=== PATIENT | female | born 1995 | race Caucasian/White ===

== ENCOUNTER 2019-05-21 13:18 | Emergency (ER) | payer OTHER ==
[2019-05-21 13:40] VITALS: BP 128/67
--- NOTE | 2019-05-21 14:02 | UC ---
Abdominal Pain Female HPI - HPI Summary HPI Summary: Patient is a 24 year old transgender, who present today to the urgent care with lower abdominal pain for past 1 week. Reports the pain is intermittent throughout the day- feels like menstrual cramps. There is associated bloating-like sensation She has been on testosterone for past 5-1/2 years(gets his prescription from [facility], does not have a primary care doctor), last menstrual period was 5 years ago but gets once a week abdominal cramping like a menstrual cramp. Has been sexually active and last sexual encounter was 1 week ago. Reports that chances of getting is minimal but not severe as per her physician. denies any dysuria or vaginal discharge, no fever, diarrhea/constipation or nausea. No blood in stool No change in bowel habits, last bowel movement was earlier today. Denies any low back pain. Has tried ibuprofen with some help in the past. Also reports swollen lymph node on the right lower neck, for which she was seen 2 weeks ago and advised monitoring. Feels that this decreased in size, nontender and has been there for approximately 2 weeks. - History of Current Complaint Chief Complaint: UCGI Stated Complaint: LOWER ABD PAIN Time Seen by Provider: 05/21/19 13:56 Hx Obtained From: Patient Hx Last Menstrual Period: 5 and a half years ago Pain Intensity: 3 Allergies/Adverse Reactions: Allergies Allergy/AdvReac Type Severity Reaction Status Date / Time No Known Allergies Allergy Verified 05/21/19 13:40 Home Medications: Home Medications Testosterone Cypionate 100 mg IM WEEKLY 05/21/19 [History Confirmed 05/21/19] PMH/Surg Hx/FS Hx/Imm Hx - Additional Past Medical History Additional PMH: Past Medical History : None, on testosterone for past 5 years Past Surgical History: No Past History of Procedure Family History : non contributory Social History : Weekly alcohol, non smoker, marijuana use. Lives with family . Previously Healthy: Yes - Surgical History Surgical History: None - Social History Alcohol Use: Weekly Substance Use Type: Marijuana Smoking Status (MU): Never Smoked Tobacco Review of Systems All Other Systems Reviewed And Are Negative: Yes Constitutional: Positive: Negative. Negative: Fever Skin: Positive: Negative Eyes: Positive: Negative ENT: Positive: Negative Respiratory: Positive: Negative Cardiovascular: Positive: Negative Gastrointestinal: Positive: Abdominal Pain - Lower abdominal. Negative: Vomiting, Diarrhea, Nausea Genitourinary: Positive: Negative Motor: Positive: Negative Neurovascular: Positive: Negative - Is in Musculoskeletal: Positive: Negative Neurological: Positive: Negative Psychological: Positive: Negative Is Patient Immunocompromised?: No Physical Exam - Summary Physical Exam Summary: Physical Exam: Const: Appears well. No signs of apparent distress present. Alert and oriented x 3. Musculo: Walks with a normal gait. Head/Face: Atraumatic, normocephalic on inspection. Eyes: EOMI and PERRLA in both eyes. Conjunctivae clear. No discharge noted ENT: Hearing normal There is a small 1 cm sized lymph node in the right lower neck area, no erythema or tenderness to palpation noted Respiratory: Respirations are unlabored. Lungs clear to auscultation bilaterally, no wheezing , rhonchi or rales noted . CVS: Regular rate and Rhythm, S1S2 normal , no murmurs identified. Extremities: Peripheral circulation is grossly normal. Pulses 2+ Abdomen : Soft , mild tenderness is noted in the suprapubic area , nondistended , Bowel sounds present . No guarding , rebound tenderness or rigidity noted. Skin: No lesions or rash located on the upper extremities or on the lower extremities. Neuro: Cranial nerves II to XII intact, motor and sensory intact. DTR Intact bilaterally. Mood is normal. Affect is normal. Triage Information Reviewed: Yes Vital Signs: Initial Vital Signs Temp 99.6 F 05/21/19 13:34 Pulse 67 05/21/19 13:34 Resp 20 05/21/19 13:34 BP 128/67 05/21/19 13:34 Pulse Ox 99 05/21/19 13:34 Vital Signs Reviewed: Yes Abd Pain Female Course/Dx - Course Course Of Treatment: During the visit today, we obtained urinalysis and urine test which were negative. I discussed at length further options with her and discussed the option of going to the ER to get further imaging done (there is no ultrasound or CT available in urgent care today ) versus monitoring it for any worsening since there is no red flag on exam can return to ER if symptoms get worse and she opted to monitor for any worsening at this time and will return to ER if there is any worsening of pain. We also discussed that the lymph node is secondary to some infectious process and it's getting better and plan to monitor it for any worsening and its resolution. Patient expressed understanding . - Differential Dx/Diagnosis Provider Diagnosis: Abdominal pain Discharge - Sign-Out/Discharge Documenting (check all that apply): Patient Departure All imaging exams completed and their final reports reviewed: No Studies - Discharge Plan Condition: Stable Disposition: HOME Patient Education Materials: Abdominal Pain (ED) Referrals: No Primary Care Phys,NOPCP [Primary Care Provider] - [facility] [Outside] - As Soon As Possible Additional Instructions: Monitor for any worsening of abdominal pain. Follow-up tomorrow here for possible ultrasound / CT scan if still having symptoms as you don't have a primary care doctor. I will put in a referral for primary care doctor for future. Patients blood pressure slightly high in the prehypertensive range at Urgent care today , plan follow up with PCP for better control Return to Urgent care / ER if symptoms get worse. - Billing Disposition and Condition Condition: STABLE Disposition: Home
== END 2019-05-21 15:20 | disposition home or self-care (01) ==
LOC: EDSEX 13:18 → UCEAST 13:18
DX: R10.30 Lower abdominal pain, unspecified (principal); F64.0 Transsexualism
CPT/HCPCS: 81003; 84702; 99201; G0463